=== PATIENT | female | born 1980 | race Caucasian/White ===

== ENCOUNTER 2017-01-13 20:02 | Observation (INO) | payer MEDICAID ==
[2017-01-13 21:09] VITALS: BP 112/71; PULSE 72; RESP 16; TEMP 97.7; O2SAT 100
[2017-01-13 22:22] VITALS: PULSE 72
[2017-01-14 00:01] VITALS: PULSE 66
[2017-01-14 00:08] VITALS: BP 118/68; PULSE 74; RESP 18; TEMP 98.4; O2SAT 97
[2017-01-14 00:35] LABS: CREATINE KINASE 37 U/L (26-192)
[2017-01-14 04:01] VITALS: PULSE 60
[2017-01-14 04:55] VITALS: BP 132/72; PULSE 77; RESP 18; TEMP 98.4; O2SAT 95
[2017-01-14 05:32] VITALS: BP 119/61; PULSE 66; RESP 18; TEMP 98.7; O2SAT 97
[2017-01-14 07:22] VITALS: BP 110/59; PULSE 72; RESP 18; TEMP 98; O2SAT 100
--- NOTE | 2017-01-14 09:56 | HHI.HP ---
HPI Primary Care Physician No Primary Care Physician Chief Complaint Chest pain History of Present Illness This is a 36-year-old female that presents to the ED after being transferred from [facility] to evaluate her chest discomfort. She states she was driving home when she developed a left-sided discomfort in her chest that she describes as a warmth sensation. It lasted less than a minute. At the same time she also had some numbness/tingling down her left arm. She was briefly short of breath. No nausea or diaphoresis. It then reoccurred while she was passing the ED but was not as bad and decided to seek treatment. States she's had no problems like this in the past. Takes no medications. Denies family history of heart disease. She is a nonsmoker. Review of Systems General: Patient denies fevers, chills recent, and recent travel HEENT: Patient denies headache, sore throat, difficulty swallowing. Cardiovascular: Has the chest discomfort as mentioned above. Denies sensation of heart beating rapidly or irregularly. No syncope. Denies diaphoresis. Respiratory: She was briefly short of breath. Denies inspirational chest discomfort. Denies coughing wheezing or hemoptysis. GI: Patient denies nausea, vomiting, diarrhea, abdominal pain, bloody stools. Musculoskeletal: Patient denies joint pain or edema. Denies calf pain or edema. Neurovascular: Left arm felt numb and tingly while having the chest discomfort. Patient denies weakness in extremities. Denies headache. Endocrine: Denies polyuria and polydipsia. Hematologic: Denies easy bruising. Skin: Denies rash or itching. Past Family Social History Allergies: Coded Allergies: No Known Allergies (Unverified , 01/13/17) Past Medical History Denies hypertension, hyperlipidemia, diabetes, and known CAD. Past Surgical History and breast augmentation. Reported Medications Reported Meds & Active Scripts Active No Active Prescriptions or Reported Medications Family History Denies family history of CAD. Vital Signs Social History Patient is a lifetime nonsmoker. Denies alcohol or illicit drugs. She is . 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 Physical Exam Vital Signs Vital Signs Date Time Temp Pulse Resp B/P Pulse Ox O2 Delivery O2 Flow Rate FiO2 01/14/17 07:22 98.0 72 18 110/59 100 01/14/17 05:32 98.7 66 18 119/61 97 01/14/17 04:55 98.4 77 18 132/72 95 01/14/17 04:01 60 01/14/17 00:08 98.4 74 18 118/68 97 01/14/17 00:01 66 01/13/17 22:22 72 01/13/17 21:09 97.7 72 16 112/71 100 Physical Exam GENERAL: This is a well-nourished, well-developed patient, in no apparent distress. Patient speaks in clear complete sentences. Patient is pleasant. HEENT: Head is atraumatic and normocephalic. Neck is supple without lymphadenopathy and trachea is midline. No JVD or carotid bruits. CARDIOVASCULAR: Regular rate and rhythm without murmurs, gallops, or rubs. RESPIRATORY: Clear to auscultation. Breath sounds equal bilaterally. No wheezes , rales, or rhonchi. Chest wall is nontender. No use of accessory muscles. GASTROINTESTINAL: Abdomen is nontender, nondistended. Abdomen soft. Normal bowel sounds in all quadrants. MUSCULOSKELETAL: Patient is moving upper and lower extremities freely. No calf tenderness or edema, no Homans sign. Strong pulses in upper and lower extremities. NEUROLOGICAL: Patient is alert and oriented. Cranial nerves 2-12 are grossly intact. No focal deficits and speech is clear. SKIN: No rash and turgor is normal. Laboratory Laboratory Tests Test 01/13/17 23:30 Total Creatine Kinase 37 Troponin I LESS THAN 0.02 Imaging CTA has no PE. Course EKGs are sinus rhythm without significant ST segment depressions or elevations. Assessment and Plan Assessment and Plan * Atypical chest pain: Patient has had serial cardiac enzymes and EKGs for ruling out purposes. She was seen by Dr. Watters of cardiology in the chest pain center and will undergo a Abelardo protocol ETT. She'll be discharged home if her stress test is nonischemic with instructions to follow-up with local primary care physician. Isiah Gatica Jan 14, 2017 09:56
--- NOTE | 2017-01-14 09:57 | HHI.DCPOC ---
Discharge Care Plan Diagnosis: (1) Chest pain, atypical Goals to Promote Your Health * To prevent worsening of your condition and complications * To maintain your health at the optimal level Directions to Meet Your Goals Take your medications as prescribed Follow your dietary instruction Follow activity as directed Keep your appointments as scheduled Take your immunizations and boosters as scheduled If your symptoms worsen call your PCP, if no PCP go to Urgent Care Center or Emergency Room Smoking is Dangerous to Your Health. Avoid second hand smoke Call the 24-hour hour crisis hotline for domestic abuse at Isiah Gatica Jan 14, 2017 09:57
--- NOTE | 2017-01-14 17:19 | TR ---
Date Performed: 01/14/2017 Time Performed: 09:27:47 DOCTOR: Vanesa Watters DRUG LIST: CLINICAL HISTORY: REASON FOR TEST: ACUTE CHEST PAIN REASON FOR ENDING: OBSERVATION: CONCLUSION: Abelardo protocol performed. No reproducible chest discomfort or chest pain. Test stopp ed secondary to target heart rate reached secondary to leg fatigue. No ST segment changes. Maximum HR =171 % Target HR Achieved=92.0% Maximum KM=254/88 Total Exercise Time=7:01 COMMENTS:
--- NOTE | 2017-01-14 17:26 | EKG ---
Date Performed: 01/13/2017 Time Performed: 21:53:54 PTAGE: 36 years EKG: Sinus rhythm NORMAL ECG Since PREVIOUS TRACING , no significant change noted DOCTOR: Vanesa Watters Interpretating Date/Time 01/14/2017 17:24:31
== END 2017-01-14 11:29 | disposition home or self-care (01) ==
LOC: NEDDLT 20:02 → NEPFCDU 20:12
PROVIDERS: ADMIT Internal Medicine Cardiovascular Disease; ATTEND Internal Medicine Cardiovascular Disease
DX: R07.89 Other chest pain (principal); R20.0 Anesthesia of skin; R06.02 Shortness of breath
CPT/HCPCS: 71010; 71275; 80053; 82550; 83690; 83735; 84484; 84702; 85025; 85610; 85730; 93005; 93017; 96360; 99285; G0378; J7040; Q9967; 99281